=== PATIENT | female | born 1970 | race Two or more races ===

== ENCOUNTER → 2020-03-12 | Emergency (ER) | payer MEDICAID ==
[~2020-03-12] VITALS: Ht 165.1 cm; Wt 110.2 kg
[2020-03-12 23:39] VITALS: BP 109/64
== END | disposition left against medical advice (07) ==
LOC: ER 22:21
DX: R06.02 Shortness of breath (principal); Z53.21 Procedure and treatment not carried out due to patient leaving prior to being seen by health care provider